=== PATIENT | female | born 1975 ===

== ENCOUNTER 2021-04-15 07:12 | Outpatient (RCR) | payer BC, SELFPAY | END 2021-05-13 23:59 | disposition home or self-care (01) | LOC: MPT 07:12 | PROVIDERS: PCP Emergency Medicine; Visit Provider Emergency Medicine | DX: R42 Dizziness and giddiness (principal); R26.89 Other abnormalities of gait and mobility; R00.0 Tachycardia, unspecified | CPT/HCPCS: 97110; 97140; 97161; 97530 ==

== ENCOUNTER 2021-05-14 06:00 | Outpatient (RCR) | payer BC, SELFPAY | END 2021-06-13 23:59 | disposition home or self-care (01) | LOC: MPT 06:00 | PROVIDERS: PCP Emergency Medicine; Visit Provider Emergency Medicine | DX: R42 Dizziness and giddiness (principal); R26.89 Other abnormalities of gait and mobility; R00.0 Tachycardia, unspecified | CPT/HCPCS: 97140; 97530 ==